=== PATIENT | male | born 1990 | race Caucasian/White ===

== ENCOUNTER 2020-10-19 09:06 | Outpatient (CLI) | payer OTHER | END 2020-10-19 09:07 | disposition home or self-care (01) | LOC: CSHMRI 09:06 | PROVIDERS: ATTEND Family Medicine | DX: S80.01XD Contusion of right knee, subsequent encounter (principal); S33.5XXD Sprain of ligaments of lumbar spine, subsequent encounter ==

== ENCOUNTER 2021-07-26 12:21 | Emergency (ER) | payer SELFPAY ==
[2021-07-26 14:23] LABS: #Eosinphils 0.1 10x3/uL (0.0-0.5); #Monocytes 0.5 10x3/uL (0.0-1.1); #Neutrophils 4.4 10x3/uL (1.5-8.4); %Basophils 0.6 % (0.0-2.0); %Eosinophils 0.9 % (0.0-6.0); %Lymphocytes 21.4 % (18.0-47.0); %Monocytes 7.5 % (0.0-10.0); %Neutrophils 69.3 % (40.0-75.0); Mean Corpuscular HGB CONC 33.5 g/dL (32.0-36.0); Mean Corpuscular Hemoglobin 30.7 pg (27.0-33.0); Mean Corpuscular Volume 91.8 fl (81.2-95.1); Mean Platelet Volume 10.7 fl (7.4-10.4); Platelet Count 218 10x3/uL (150-450); RBC Distribution Width 12.1 % (11.5-14.5); Red Blood Cell (RBC) Count 4.88 10x6/uL (4.32-5.72); White Blood Cell (WBC) Count 6.4 10x3/uL (3.5-10.5)
[2021-07-26 14:35] LABS: ALT (SGPT) 19 U/L (8-55); AST (SGOT) 18 U/L (5-34); Albumin 4.8 g/dL (3.5-5.0); Alkaline Phosphatase 54 U/L (40-110); Anion Gap 12 mmol/L (10-20); BUN (Urea Nitrogen) 14 mg/dL (8.9-20.6); Bilirubin, Total 0.8 mg/dL (0.2-1.2); Calc. Creatinine Clearance 0 mL/min (70-130); Calcium 9.2 mg/dL (7.8-10.44); Carbon Dioxide 25 mmol/L (22-29); Chloride 106 mmol/L (98-107); Globulin 2.9 g/dL (2.4-3.5); Glucose 82 mg/dL (70-105); Lipase 14 U/L (8-78); Protein, Total 7.7 g/dL (6.0-8.3); Sodium 139 mmol/L (136-145)
== END 2021-07-26 16:18 | disposition home or self-care (01) ==
LOC: CSHERS 12:21
DX: R19.7 Diarrhea, unspecified (principal); G43.909 Migraine, unspecified, not intractable, without status migrainosus
CPT/HCPCS: 80053; 83690; 85025; 96372; 99284; J0500

== ENCOUNTER 2023-06-27 02:16 | Emergency (ER) | payer SELFPAY ==
[2023-06-27] MEDS ORDERED: diphenhydrAMINE 50 MG/ML VIAL ONE (02:57)
[2023-06-27] MEDS ORDERED: SUMAtriptan Succinate 6 MG/0.5 ML VIAL ONE (02:57)
[2023-06-27] MEDS ORDERED: Metoclopramide HCl 10 MG/2 ML VIAL ONE (02:57)
[2023-06-27] MEDS ORDERED: Magnesium 2 GM/50 ML BAG (IN WATER) ONE (02:58)
[2023-06-27] MEDS ORDERED: Ketorolac Tromethamine 30 MG/ML VIAL ONE (03:47)
== END 2023-06-27 04:35 | disposition home or self-care (01) ==
LOC: CSHERS 02:16
DX: G43.909 Migraine, unspecified, not intractable, without status migrainosus (principal); G93.5 Compression of brain; F17.290 Nicotine dependence, other tobacco product, uncomplicated
CPT/HCPCS: 70450; 96372; 96374; 96375; J1200; J1885; J2765; J3030; J3475

== ENCOUNTER 2025-03-19 23:44 | Emergency (ER) | payer SELFPAY ==
[2025-03-20] MEDS ORDERED: diphenhydrAMINE 50 MG/ML VIAL ONE (00:33)
[2025-03-20] MEDS ORDERED: Metoclopramide HCl 10 MG (2 mL) VIAL ONE (00:33)
[2025-03-20 01:26] LABS: #Basophils 0.04 10x3/uL (0.0-0.2); #Eosinophils 0.07 10x3/uL (0.0-0.5); #Monocytes 0.42 10x3/uL (0.0-1.1); #Neutrophils 4.06 10x3/uL (1.5-8.4); %Basophils 0.7 % (0.0-2.0); %Eosinophils 1.2 % (0.0-6.0); %Lymphocytes 20.8 % (18.0-47.0); %Monocytes 7.2 % (0.0-10.0); %Neutrophils 69.8 % (40.0-75.0); Hematocrit 41.8 % (38.8-50.0); Hemoglobin 14.3 g/dL (13.5-17.5); Mean Corpuscular Hemoglobin 30.6 pg (27.0-33.0); Mean Corpuscular Volume 89.5 fL (81.2-95.1); Platelet Count 244 10x3/uL (150-450); Red Blood Cell (RBC) Count 4.67 10x6/uL (4.32-5.72); White Blood Cell (WBC) Count 5.82 10x3/uL (3.5-10.5)
[2025-03-20 01:39] LABS: Acetaminophen Less than 10 mcg/mL (Less than 10); Salicylate Less than 8.0 mg/dL (Less than 8.0)
[2025-03-20 01:40] LABS: ALT (SGPT) 17 U/L (Less than 45); AST (SGOT) 22 U/L (11-34); Albumin 4.3 g/dL (3.1-4.5); Alkaline Phosphatase 52 U/L (40-110); Anion Gap 16 mmol/L (10-20); BUN (Urea Nitrogen) 12 mg/dL (8.9-20.6); Bilirubin, Total 0.6 mg/dL (0.3-1.2); Calc. Creatinine Clearance 0 mL/min (70-130); Calcium 8.9 mg/dL (7.8-10.44); Carbon Dioxide 22 mmol/L (22-29); Chloride 106 mmol/L (98-107); Globulin 3.1 g/dL (2.4-3.5); Glucose 150 mg/dL (70-105); Potassium 3.9 mmol/L (3.5-5.1); Sodium 140 mmol/L (136-145)
[2025-03-20 02:12] LABS: Glucose, Urine (Dipstick) Normal (Negative); Leukocyte Negative (Negative); Protein, Urine (Dipstick) Negative (Neg-Trace); Specific Gravity, Urine 1.015 (1.005-1.030)
[2025-03-20 02:20] LABS: Bacteria/HPF None Seen HPF (None Seen); CAUTI Indications for Culture Alt mental st,lethar; RBC/HPF None Seen HPF (0-3); WBC/HPF 0-3 HPF (0-3)
[2025-03-20 02:21] LABS: Urine Culture Reflex No No
[2025-03-20 02:22] LABS: Cocaine Metabolite Screen Negative (Negative); THC/Cannabinoid Screen Negative (Negative); Tricyclic Screen Negative (Negative)
== END 2025-03-20 02:41 | disposition home or self-care (01) ==
LOC: CSHERS 23:44
DX: I16.0 Hypertensive urgency (principal); F17.290 Nicotine dependence, other tobacco product, uncomplicated
CPT/HCPCS: 71045; 80053; 80306; 80307; 81001; 83880; 85025; 93005; 96374; 96375; J1200; J2765

== ENCOUNTER 2025-03-20 21:16 | Inpatient (IN) | payer SELFPAY ==
[2025-03-20] MEDS ORDERED: niCARdipine 25 MG/10 ML SDV ONE (21:43)
[2025-03-20] MEDS ORDERED: Metoclopramide HCl 10 MG (2 mL) VIAL ONE (21:43)
[2025-03-20 21:49] LABS: #Basophils 0.05 10x3/uL (0.0-0.2); #Eosinophils 0.07 10x3/uL (0.0-0.5); #Monocytes 0.48 10x3/uL (0.0-1.1); #Neutrophils 3.34 10x3/uL (1.5-8.4); %Basophils 0.9 % (0.0-2.0); %Eosinophils 1.3 % (0.0-6.0); %Lymphocytes 25.5 % (18.0-47.0); %Monocytes 9.1 % (0.0-10.0); %Neutrophils 63.0 % (40.0-75.0); Hematocrit 40.7 % (38.8-50.0); Hemoglobin 14.3 g/dL (13.5-17.5); Mean Corpuscular Hemoglobin 31.0 pg (27.0-33.0); Mean Corpuscular Volume 88.1 fL (81.2-95.1); Platelet Count 270 10x3/uL (150-450); Red Blood Cell (RBC) Count 4.62 10x6/uL (4.32-5.72); White Blood Cell (WBC) Count 5.30 10x3/uL (3.5-10.5)
[2025-03-20 22:06] LABS: ALT (SGPT) 16 U/L (Less than 45); AST (SGOT) 15 U/L (11-34); Albumin 4.3 g/dL (3.1-4.5); Alkaline Phosphatase 54 U/L (40-110); Anion Gap 14 mmol/L (10-20); BUN (Urea Nitrogen) 16 mg/dL (8.9-20.6); Bilirubin, Total 0.5 mg/dL (0.3-1.2); Calc. Creatinine Clearance 0 mL/min (70-130); Calcium 9.4 mg/dL (7.8-10.44); Carbon Dioxide 27 mmol/L (22-29); Chloride 105 mmol/L (98-107); Globulin 3.0 g/dL (2.4-3.5); Glucose 112 mg/dL (70-105); Potassium 3.7 mmol/L (3.5-5.1); Sodium 142 mmol/L (136-145)
[2025-03-20] MEDS ORDERED: diphenhydrAMINE 50 MG/ML VIAL ONE (22:06)
[2025-03-20 22:08] LABS: Troponin I Less than 0.010 ng/mL (< 0.028)
[2025-03-20] MEDS ORDERED: Ondansetron PF 4 MG/2 ML Vial IVP PRN (23:24)
[2025-03-20] MEDS ORDERED: niCARdipine 25 MG in Sodium Chloride 0.9% 250 ML 250 ML IVPB SCH (23:30)
[2025-03-21 00:06] LABS: Troponin I Less than 0.010 ng/mL (< 0.028)
[2025-03-21] MEDS: Ketorolac Tromethamine 30 MG (1 mL) VIAL ONE (00:12)
[2025-03-21] MEDS: Ketorolac Tromethamine 30 MG (1 mL) VIAL IVP SCH (00:13)
[2025-03-21] MEDS: Metoclopramide HCl 10 MG (2 mL) VIAL IVP SCH (00:17)
[2025-03-21] MEDS: Losartan 25 MG TAB PO SCH ×2 (00:17→09:46)
[2025-03-21 02:35] LABS: #Basophils 0.03 10x3/uL (0.0-0.2); #Eosinophils 0.04 10x3/uL (0.0-0.5); #Monocytes 0.41 10x3/uL (0.0-1.1); #Neutrophils 4.28 10x3/uL (1.5-8.4); %Basophils 0.5 % (0.0-2.0); %Eosinophils 0.6 % (0.0-6.0); %Lymphocytes 23.0 % (18.0-47.0); %Monocytes 6.6 % (0.0-10.0); %Neutrophils 69.0 % (40.0-75.0); Hematocrit 41.5 % (38.8-50.0); Hemoglobin 14.1 g/dL (13.5-17.5); Mean Corpuscular Hemoglobin 30.5 pg (27.0-33.0); Mean Corpuscular Volume 89.6 fL (81.2-95.1); Platelet Count 266 10x3/uL (150-450); Red Blood Cell (RBC) Count 4.63 10x6/uL (4.32-5.72); White Blood Cell (WBC) Count 6.21 10x3/uL (3.5-10.5)
[2025-03-21 02:57] LABS: Troponin I Less than 0.010 ng/mL (< 0.028)
[2025-03-21 05:28] LABS: Anion Gap 15 mmol/L (10-20); BUN (Urea Nitrogen) 17 mg/dL (8.9-20.6); Calc. Creatinine Clearance 175 mL/min (70-130); Calcium 9.5 mg/dL (7.8-10.44); Carbon Dioxide 23 mmol/L (22-29); Chloride 106 mmol/L (98-107); Glucose 107 mg/dL (70-105); Potassium 3.9 mmol/L (3.5-5.1); Sodium 140 mmol/L (136-145)
[2025-03-21] MEDS: Enoxaparin 40 MG (0.4 mL) SYRINGE SC SCH (08:36)
[2025-03-21] MEDS: Prochlorperazine 10 MG/2 ML VIAL SLOW IVP SCH (10:29)
[2025-03-21] MEDS: Magnesium 2 GM/50 ML(in water) 1 GM in Premix 1 BAG IVPB SCH (10:34)
[2025-03-21 12:43] LABS: Cocaine Metabolite Screen Negative (Negative); THC/Cannabinoid Screen Negative (Negative); Tricyclic Screen Negative (Negative)
[2025-03-21] MEDS: D5 1/2 NS w/20 mEq KCL 1,000 ML IV SCH (14:54)
[2025-03-21] MEDS: Famotidine 20 MG TAB PO SCH (22:10)
[2025-03-22 09:01] LABS: #Basophils 0.03 10x3/uL (0.0-0.2); #Eosinophils 0.04 10x3/uL (0.0-0.5); #Monocytes 0.39 10x3/uL (0.0-1.1); #Neutrophils 4.53 10x3/uL (1.5-8.4); %Basophils 0.5 % (0.0-2.0); %Eosinophils 0.6 % (0.0-6.0); %Lymphocytes 20.7 % (18.0-47.0); %Monocytes 6.2 % (0.0-10.0); %Neutrophils 71.7 % (40.0-75.0); Hematocrit 40.6 % (38.8-50.0); Hemoglobin 13.9 g/dL (13.5-17.5); Mean Corpuscular Hemoglobin 30.5 pg (27.0-33.0); Mean Corpuscular Volume 89.2 fL (81.2-95.1); Platelet Count 272 10x3/uL (150-450); Red Blood Cell (RBC) Count 4.55 10x6/uL (4.32-5.72); White Blood Cell (WBC) Count 6.32 10x3/uL (3.5-10.5)
[2025-03-22 09:15] LABS: Anion Gap 14 mmol/L (10-20); BUN (Urea Nitrogen) 23 mg/dL (8.9-20.6); Calc. Creatinine Clearance 193 mL/min (70-130); Calcium 9.3 mg/dL (7.8-10.44); Carbon Dioxide 24 mmol/L (22-29); Chloride 102 mmol/L (98-107); Glucose 136 mg/dL (70-105); Magnesium 2.0 mg/dL (1.6-2.6); Potassium 3.4 mmol/L (3.5-5.1); Sodium 137 mmol/L (136-145)
[2025-03-22] MEDS: Fioricet 325/50/40 mg Tablet PO PRN (16:37)
[2025-03-23 05:05] VITALS: BMI 30.4
[2025-03-23] MEDS: Acetaminophen 325 MG TAB PO PRN (05:48)
[2025-03-24] MEDS: hydrALAZINE 20 MG/ML VIAL SLOW IVP PRN (01:35)
[2025-03-24] MEDS: Ketorolac Tromethamine 30 MG (1 mL) VIAL IVP SCH (01:56)
[2025-03-24] MEDS: Ketorolac Tromethamine 30 MG (1 mL) VIAL ONE (01:57)
[2025-03-24] MEDS: Losartan 25 MG TAB PO SCH (12:56)
[2025-03-24] MEDS ORDERED: cloNIDine 0.1 MG TAB PO PRN (17:24)
[2025-03-25 04:38] LABS: #Basophils 0.04 10x3/uL (0.0-0.2); #Eosinophils 0.10 10x3/uL (0.0-0.5); #Monocytes 0.63 10x3/uL (0.0-1.1); #Neutrophils 4.00 10x3/uL (1.5-8.4); %Basophils 0.6 % (0.0-2.0); %Eosinophils 1.6 % (0.0-6.0); %Lymphocytes 22.7 % (18.0-47.0); %Monocytes 10.1 % (0.0-10.0); %Neutrophils 64.4 % (40.0-75.0); Hematocrit 41.7 % (38.8-50.0); Hemoglobin 13.9 g/dL (13.5-17.5); Mean Corpuscular Hemoglobin 30.4 pg (27.0-33.0); Mean Corpuscular Volume 91.2 fL (81.2-95.1); Platelet Count 267 10x3/uL (150-450); Red Blood Cell (RBC) Count 4.57 10x6/uL (4.32-5.72); White Blood Cell (WBC) Count 6.22 10x3/uL (3.5-10.5)
[2025-03-25 04:48] LABS: Anion Gap 14 mmol/L (10-20); BUN (Urea Nitrogen) 18 mg/dL (8.9-20.6); Calc. Creatinine Clearance 182 mL/min (70-130); Calcium 9.0 mg/dL (7.8-10.44); Carbon Dioxide 23 mmol/L (22-29); Chloride 107 mmol/L (98-107); Glucose 97 mg/dL (70-105); Potassium 4.4 mmol/L (3.5-5.1); Sodium 140 mmol/L (136-145)
[2025-03-25] MEDS: Losartan 50 MG TAB PO SCH ×2 (07:27→10:11)
[2025-03-25 10:55] VITALS: BP 138/93
[2025-03-25 11:54] VITALS: TEMP 98.3
[2025-03-26] MEDS ORDERED: Losartan 50 MG TAB PO SCH (09:00)
[2025-03-28 13:13] LABS: Dopamine 24H Ur 288 ug/24 hr (0-510); Dopamine,Ur 186 ug/L (Undefined); Epinephrine 24H Ur Less than 5 ug/24 hr (0-20); Epinephrine,Ur <3 ug/L (Undefined); Norephinephrine 24H U 54 ug/24 hr (0-135); Norephinephrine,Ur 35 ug/L (Undefined)
== END 2025-03-25 12:45 | disposition home or self-care (01) | DRG 304 ==
LOC: SUATTDRO 21:16 → CSHERS 21:16 → CSHICU 22:43
PROVIDERS: ADMIT Family Medicine; ATTEND Internal Medicine
DX: I16.1 Hypertensive emergency (principal); G93.5 Compression of brain; N28.1 Cyst of kidney, acquired; G43.909 Migraine, unspecified, not intractable, without status migrainosus; Z87.81 Personal history of (healed) traumatic fracture; Z90.49 Acquired absence of other specified parts of digestive tract; Z98.890 Other specified postprocedural states
CPT/HCPCS: 36415; 70450; 70551; 71045; 76770; 80048; 80306; 82384; 83735; 83835; 84443; 84484; 85025; 86140; 93005; 93306; 94760; 94762; 96374; 96375; J0360; J0780; J1100; J1200; J1650; J1885; J2270; J2272; J2765; J3475; J3480